=== PATIENT | male | born 1975 | race Caucasian/White ===

== ENCOUNTER 2024-07-18 13:02 | Inpatient (IN) | payer BC ==
[~2024-07-18] VITALS: Ht 177.8 cm; Wt 174.7 kg
[2024-07-18 13:27] LABS: BASOPHILS # (AUTO) 0.2 X10'3 (0-0.2); BASOPHILS % (AUTO) 0.8 % (0-1); EOSINOPHILS # (AUTO) 0.1 X10'3 (0-0.9); EOSINOPHILS % (AUTO) 0.4 % (0-6); HEMATOCRIT 39.2 % (42.0-52.0); HEMOGLOBIN 12.6 g/dl (14.0-17.9); LYMPHOCYTES # (AUTO) 3.9 X10'3 (1.1-4.8); LYMPHOCYTES % (AUTO) 17.5 % (21-51); MEAN CORPUSCULAR HEMOGLOBIN 25.6 PG (27.0-31.0); MEAN CORPUSCULAR HGB CONC 32.1 g/dL (33.0-36.5); MEAN CORPUSCULAR VOLUME 79.7 FL (78-98); MEAN PLATELET VOLUME 9.9 FL (7.4-10.4); MONOCYTES # (AUTO) 1.6 X10'3 (0-0.9); MONOCYTES % (AUTO) 7.1 % (2-12); NEUTROPHILS # (AUTO) 16.3 X10'3 (1.8-7.7); NEUTROPHILS % (AUTO) 74.2 % (42-75); PLATELET COUNT 323 X10'3 (140-440); RED BLOOD COUNT 4.91 X10'6 (4.70-6.10); RED CELL DISTRIBUTION WIDTH 14.7 % (11.5-14.5)
[2024-07-18] MEDS: adenosine 3mg/ml 2ml vial IV ONE ×3 (13:27→14:04)
[2024-07-18] MEDS: diltiazem 5mg/ml 5ml inj. IV ONE ×2 (13:27→13:58)
[2024-07-18 13:47] LABS: ANION GAP 12 (8-16); BLOOD UREA NITROGEN 55 MG/DL (7-18); BUN/CREATININE RATIO 19.8 (10.0-20.0); CHLORIDE 94 MMOL/L (99-107); CREATININE 2.78 MG/DL (0.60-1.10); GLUCOSE 238 MG/DL (70-104); SODIUM 133 MMOL/L (135-145); TOTAL CARBON DIOXIDE 26.8 MMOL/L (24-32)
[2024-07-18 13:48] LABS: ALANINE AMINOTRANSFERASE 41 U/L (12-78); ALBUMIN 3.2 G/DL (3.4-5.0); ALBUMIN/GLOBULIN RATIO 0.8 (1.1-1.5); ALKALINE PHOSPHATASE 110 IU/L (46-116); ASPARTATE AMINO TRANSFERASE 39 U/L (10-37); BILIRUBIN,TOTAL 0.8 MG/DL (0.1-1.0); CALCIUM 8.4 MG/DL (8.5-10.1); eCRCL 33 ML/MIN; eGFR 24 ML/MIN
[2024-07-18 13:54] LABS: PRO BRAIN NATRIURETIC PEPTIDE 3250 PG/ML (0-125)
[2024-07-18 14:01] LABS: D-DIMER 1.46 MG/L FEU (0-0.50)
[2024-07-18 14:15] LABS: THYROID STIMULATING HORMONE 2.45 ulU/ml (0.34-4.50)
[2024-07-18 14:24] LABS: POTASSIUM 3.1 MMOL/L (3.5-5.1)
[2024-07-18] MEDS ORDERED: iohexol 350MG/ML 100ml bottle IV ONE (14:24)
[2024-07-18] MEDS: diltiazem-NS 100mg/100ml 100 ML IV SCH ×2 (14:34→18:11)
[2024-07-18] MEDS: bumetanide 0.25mg/ml 4ml vial IV STA (14:34)
[2024-07-18] MEDS: amiodarone 150mg/dext, iso-os 100 ML IV ONE ×3 (14:45→18:27)
[2024-07-18] MEDS: amiodarone/D5 360MG/200ML BAG 200 ML IV SCH (15:02)
[2024-07-18] MEDS ORDERED: magnesium sulf-water 4G/100mL 100 ML IV PRN (16:20)
[2024-07-18] MEDS ORDERED: ondansetron/PF 4mg/2ml inj IV PRN ×2 (16:20→18:05)
[2024-07-18] MEDS: metoprolol tartrate 1mg/ml inj IV ONE ×4 (16:20→18:26)
[2024-07-18] MEDS ORDERED: magnesium hydroxide 30ml (MOM) UD suspension PO PRN (16:20)
[2024-07-18] MEDS ORDERED: potassium Cl 40MEQ/1/2NS 520ml 520 ML IV PRN (16:20)
[2024-07-18] MEDS ORDERED: magnesium Cl slow-release 64mg tablet PO PRN (16:20)
[2024-07-18] MEDS ORDERED: acetaminophen 325mg tablet PO PRN ×3 (16:20→18:05)
[2024-07-18] MEDS ORDERED: mag hydrox/Alum hydrox/simeth 30ml oral suspension PO PRN (16:20)
[2024-07-18] MEDS: digoxin 250mcg/ml 2ml ampule IV ONE (16:50)
[2024-07-18] MEDS ORDERED: amiodarone 150mg/dext, iso-os 100 ML IV ONE (18:00)
[2024-07-18] MEDS ORDERED: morphine 2 MG/ML inj. syringe IV PRN (18:05)
[2024-07-18] MEDS ORDERED: morphine 4 MG/ML inj SYRINge IV PRN (18:05)
[2024-07-18] MEDS ORDERED: amiodarone 50MG/ML inj IV ONE (18:15)
[2024-07-18] MEDS ORDERED: METO-384 (18:25)
[2024-07-18] MEDS ORDERED: LOSA100T58 PO (18:25)
[2024-07-18] MEDS ORDERED: GLIP10TA21 PO (18:25)
[2024-07-18] MEDS ORDERED: ALOG25TA2 PO (18:25)
[2024-07-18] MEDS ORDERED: METF-900 PO (18:25)
[2024-07-18] MEDS ORDERED: HYDR25TA4 (18:25)
[2024-07-18] MEDS ORDERED: SEMA0.253 SQ (18:25)
[2024-07-18] MEDS: normal saline 1000ml 1,000 ML IV ONE (18:25)
[2024-07-18] MEDS ORDERED: FLAS1KIT3 (18:25)
[2024-07-18] MEDS ORDERED: BUME2TAB7 PO (18:25)
[2024-07-18 18:50] LABS: HEMOGLOBIN A1C > 12.0 % (4.5-6.2)
[2024-07-18 19:00] VITALS: BP 110/56; PULSE 126; RESP 29; O2SAT 94
[2024-07-18] MEDS ORDERED: glucagon, human recombinant 1mg kit SUBCUT PRN (19:10)
[2024-07-18] MEDS ORDERED: DEXTROSE 15 GM of carb/4 tabs (each vial/BOTTLE has 4 tablets) PO PRN ×2 (19:10)
[2024-07-18] MEDS ORDERED: dextrose 50%-water 50ml dispensing syringe IV PRN ×2 (19:10)
[2024-07-18 19:48] LABS: % IRON SATURATION 8 % (11-46); IRON 22 UG/DL (53-167); TOTAL IRON BINDING CAPACITY 283 UG/DL (259-388)
[2024-07-18 20:00] VITALS: BP 117/63; PULSE 125; RESP 18; RESP 27; O2SAT 93; O2SAT 95
[2024-07-18] MEDS: docusate sod 100mg capsule PO SCH (20:00)
[2024-07-18 20:16] LABS: FREE T4 (FREE THYROXINE) 1.38 NG/DL (0.73-1.40); THYROID STIMULATING HORMONE 2.27 ulU/ml (0.34-4.50)
[2024-07-18] MEDS: CefTRIAXone/D5W-Rocephin 1gm 50 ML IV ONE (20:40)
[2024-07-18] MEDS: apixaban 5mg tablet PO SCH (20:41)
[2024-07-18] MEDS: metoprolol tartrate 50mg tablet PO SCH (20:41)
[2024-07-18 21:00] VITALS: BP 121/70; PULSE 141; RESP 39; O2SAT 94
[2024-07-18] MEDS: INSULIN LISPRO 100 UNIT/ML INSULN.PEN MULTI-DOSE SQ SCH (21:34)
[2024-07-18] MEDS: insulin glargine (Lantus) pen - multi-dose SQ SCH (21:35)
[2024-07-18 22:00] VITALS: BP 126/66; PULSE 126; RESP 26; O2SAT 94
[2024-07-18 23:00] VITALS: BP 121/52; PULSE 93; RESP 25; O2SAT 93
[2024-07-19] VITALS (24 sets, daily range): BP systolic 87–154; BP diastolic 50–85; PULSE 75–121; RESP 10–30; TEMP 97–98.1; O2SAT 91–97
[2024-07-19] MEDS ORDERED: heparin, porcine 5000 units/ml vial SQ SCH
[2024-07-19 03:10] LABS: BASOPHILS # (AUTO) 0.2 X10'3 (0-0.2); EOSINOPHILS # (AUTO) 0.1 X10'3 (0-0.9); EOSINOPHILS % (AUTO) 0.7 % (0-6); HEMATOCRIT 37.7 % (42.0-52.0); HEMOGLOBIN 12.1 g/dl (14.0-17.9); LYMPHOCYTES # (AUTO) 3.8 X10'3 (1.1-4.8); LYMPHOCYTES % (AUTO) 21.9 % (21-51); MEAN CORPUSCULAR HEMOGLOBIN 25.8 PG (27.0-31.0); MEAN CORPUSCULAR HGB CONC 32.2 g/dL (33.0-36.5); MEAN CORPUSCULAR VOLUME 80.1 FL (78-98); MEAN PLATELET VOLUME 9.6 FL (7.4-10.4); MONOCYTES # (AUTO) 1.3 X10'3 (0-0.9); MONOCYTES % (AUTO) 7.4 % (2-12); PLATELET COUNT 241 X10'3 (140-440); RED BLOOD COUNT 4.71 X10'6 (4.70-6.10); RED CELL DISTRIBUTION WIDTH 14.9 % (11.5-14.5); WHITE BLOOD COUNT 17.4 X10'3 (4.5-11.0)
[2024-07-19 03:30] LABS: ALANINE AMINOTRANSFERASE 41 U/L (12-78); ALBUMIN 3.1 G/DL (3.4-5.0); ALKALINE PHOSPHATASE 102 IU/L (46-116); ANION GAP 9 (8-16); ASPARTATE AMINO TRANSFERASE 23 U/L (10-37); BILIRUBIN,TOTAL 0.7 MG/DL (0.1-1.0); BLOOD UREA NITROGEN 51 MG/DL (7-18); BUN/CREATININE RATIO 22.9 (10.0-20.0); CALCIUM 8.2 MG/DL (8.5-10.1); CHLORIDE 98 MMOL/L (99-107); CREATININE 2.23 MG/DL (0.60-1.10); GLUCOSE 184 MG/DL (70-104); POTASSIUM 3.3 MMOL/L (3.5-5.1); SODIUM 139 MMOL/L (135-145); TOTAL CARBON DIOXIDE 32.2 MMOL/L (24-32); TOTAL PROTEIN 6.3 G/DL (6.4-8.2); eCRCL 41 ML/MIN; eGFR 31 ML/MIN
[2024-07-19] MEDS: potassium Cl 20 mEq SR tablet PO PRN ×2 (04:55→08:48)
[2024-07-19] MEDS: amiodarone 200mg tablet PO SCH ×2 (07:40→15:57)
[2024-07-19] MEDS ORDERED: amiodarone 200mg tablet PO SCH ×3 (08:00→20:00)
[2024-07-19] MEDS: metoprolol tartrate 50mg tablet PO ONE (08:34)
[2024-07-19] MEDS: amiodarone 200mg tablet PO ONE (08:48)
[2024-07-19] MEDS: magnesium sulf-water 2g/50mL 50 ML IV ONE (08:51)
[2024-07-19] MEDS: normal saline 1000ml 1,000 ML IV SCH (11:26)
[2024-07-19 12:02] LABS: BILIRUBIN,URINE NEGATIVE (Neg); CLARITY,URINE CLEAR (Clear); COLOR,URINE YELLOW (Yellow); GLUCOSE, URINE NEGATIVE (Neg); KETONES,URINE NEGATIVE (Neg); LEUKOCYTE ESTERASE ,URINE NEGATIVE (Neg); NITRITES, URINE NEGATIVE (Neg); OCCULT BLOOD,URINE NEGATIVE (Neg); PROTEIN,URINE NEGATIVE (Neg); UROBILINOGEN,URINE 0.2 E.U/dL (0.2-1.0)
[2024-07-19 12:08] LABS: UA COLLECTION TYPE NON-SPECIFIED
[2024-07-19 12:28] LABS: URINE AMPHETAMINE SCREEN NEGATIVE (Neg); URINE BARBITUATE SCREEN NEGATIVE (Neg); URINE BENZODIAZEPINES SCREEN NEGATIVE (Neg); URINE CANNABINOID SCREEN NEGATIVE (Neg); URINE COCAINE SCREEN NEGATIVE (Neg); URINE METHADONE SCREEN NEGATIVE (Neg); URINE OPIATE SCREEN NEGATIVE (Neg); URINE PHENCYCLIDINE SCREEN NEGATIVE (Neg)
[2024-07-19 12:39] LABS: UA EOSINOPHILS NO EOS /HPF
[2024-07-19] MEDS ORDERED: metoprolol tartrate 50mg tablet PO SCH ×2 (15:00→20:00)
[2024-07-19] MEDS ORDERED: DEXTROSE 15 GM of carb/4 tabs (each vial/BOTTLE has 4 tablets) PO PRN ×2 (15:25)
[2024-07-19] MEDS ORDERED: dextrose 50%-water 50ml dispensing syringe IV PRN ×2 (15:25)
[2024-07-19] MEDS ORDERED: glucagon, human recombinant 1mg kit SUBCUT PRN (15:25)
[2024-07-19] MEDS ORDERED: metoprolol tartrate 25mg tablet PO SCH ×3 (15:40→20:00)
[2024-07-19] MEDS: digoxin 250mcg/ml 2ml ampule IV ONE ×2 (15:57→21:39)
[2024-07-19] MEDS: metoprolol tartrate 25mg tablet PO SCH (16:00)
[2024-07-19] MEDS ORDERED: INSULIN LISPRO 100 UNIT/ML INSULN.PEN MULTI-DOSE SQ SCH (17:00)
[2024-07-19] MEDS: DOBUTamine-DoBUTrex 500mg/D5W 250 ML IV SCH (17:13)
[2024-07-19] MEDS: metoprolol tartrate 25mg tablet PO STA (18:03)
[2024-07-19] MEDS: INSULIN LISPRO 100 UNIT/ML INSULN.PEN MULTI-DOSE SQ SCH (19:29)
[2024-07-20] VITALS (13 sets, daily range): BP systolic 97–130; BP diastolic 48–69; PULSE 56–141; RESP 16–30; TEMP 97–99.5; O2SAT 92–97
[2024-07-20 07:22] LABS: BASOPHILS # (AUTO) 0.1 X10'3 (0-0.2); BASOPHILS % (AUTO) 0.6 % (0-1); EOSINOPHILS # (AUTO) 0.2 X10'3 (0-0.9); EOSINOPHILS % (AUTO) 1.5 % (0-6); HEMOGLOBIN 11.6 g/dl (14.0-17.9); LYMPHOCYTES # (AUTO) 2.5 X10'3 (1.1-4.8); LYMPHOCYTES % (AUTO) 19.5 % (21-51); MEAN CORPUSCULAR HEMOGLOBIN 26.2 PG (27.0-31.0); MEAN CORPUSCULAR HGB CONC 32.4 g/dL (33.0-36.5); MEAN PLATELET VOLUME 9.6 FL (7.4-10.4); MONOCYTES % (AUTO) 7.8 % (2-12); NEUTROPHILS % (AUTO) 70.6 % (42-75); PLATELET COUNT 235 X10'3 (140-440); RED BLOOD COUNT 4.44 X10'6 (4.70-6.10); RED CELL DISTRIBUTION WIDTH 14.7 % (11.5-14.5); WHITE BLOOD COUNT 12.8 X10'3 (4.5-11.0)
[2024-07-20] MEDS ORDERED: INSULIN LISPRO 100 UNIT/ML INSULN.PEN MULTI-DOSE SQ SCH ×2 (07:30→12:30)
[2024-07-20] MEDS: metoprolol tartrate 25mg tablet PO SCH (07:38)
[2024-07-20] MEDS: insulin glargine (Lantus) pen - multi-dose SQ SCH (07:46)
[2024-07-20] MEDS ORDERED: EMPAGLIFLOZIN 10 MG TABLET PO SCH (08:00)
[2024-07-20 08:19] LABS: ANION GAP 6 (8-16); BLOOD UREA NITROGEN 38 MG/DL (7-18); BUN/CREATININE RATIO 27.5 (10.0-20.0); CHLORIDE 101 MMOL/L (99-107); CREATININE 1.38 MG/DL (0.60-1.10); GLUCOSE 155 MG/DL (70-104); POTASSIUM 3.2 MMOL/L (3.5-5.1); SODIUM 140 MMOL/L (135-145)
[2024-07-20 08:20] LABS: ALANINE AMINOTRANSFERASE 30 U/L (12-78); ALBUMIN 2.7 G/DL (3.4-5.0); ALBUMIN/GLOBULIN RATIO 0.8 (1.1-1.5); ALKALINE PHOSPHATASE 93 IU/L (46-116); ASPARTATE AMINO TRANSFERASE 31 U/L (10-37); BILIRUBIN,TOTAL 0.9 MG/DL (0.1-1.0); CALCIUM 8.2 MG/DL (8.5-10.1); MAGNESIUM 2.3 MG/DL (1.5-2.4); TOTAL PROTEIN 6.3 G/DL (6.4-8.2); eCRCL 66 ML/MIN; eGFR 55 ML/MIN
[2024-07-20] MEDS: EMPAGLIFLOZIN 10 MG TABLET PO SCH (11:35)
[2024-07-20] MEDS: spironolactone 25 MG tablet PO SCH (11:36)
[2024-07-20] MEDS: INSULIN LISPRO 100 UNIT/ML INSULN.PEN MULTI-DOSE SQ SCH ×2 (12:30→17:30)
[2024-07-20] MEDS: amiodarone 150mg/dext, iso-os 100 ML IV ONE ×2 (15:04→15:08)
[2024-07-20] MEDS: metoprolol tartrate 1mg/ml inj IV PRN (15:53)
[2024-07-21] VITALS (14 sets, daily range): BP systolic 100–141; BP diastolic 47–84; PULSE 50–84; RESP 12–25; TEMP 97.2–97.7; O2SAT 94–97
[2024-07-21] MEDS: nitroGLYCERIN 1gm ointment UD TP ONE (02:07)
[2024-07-21 06:57] LABS: BASOPHILS # (AUTO) 0.1 X10'3 (0-0.2); BASOPHILS % (AUTO) 0.9 % (0-1); EOSINOPHILS # (AUTO) 0.1 X10'3 (0-0.9); EOSINOPHILS % (AUTO) 0.5 % (0-6); HEMATOCRIT 36.9 % (42.0-52.0); HEMOGLOBIN 11.7 g/dl (14.0-17.9); LYMPHOCYTES # (AUTO) 2.6 X10'3 (1.1-4.8); MEAN CORPUSCULAR HEMOGLOBIN 25.7 PG (27.0-31.0); MEAN CORPUSCULAR HGB CONC 31.7 g/dL (33.0-36.5); MEAN PLATELET VOLUME 10.1 FL (7.4-10.4); MONOCYTES # (AUTO) 1.1 X10'3 (0-0.9); MONOCYTES % (AUTO) 7.5 % (2-12); NEUTROPHILS # (AUTO) 10.4 X10'3 (1.8-7.7); NEUTROPHILS % (AUTO) 73.1 % (42-75); PLATELET COUNT 257 X10'3 (140-440); RED BLOOD COUNT 4.55 X10'6 (4.70-6.10); RED CELL DISTRIBUTION WIDTH 14.6 % (11.5-14.5); WHITE BLOOD COUNT 14.3 X10'3 (4.5-11.0)
[2024-07-21 07:52] LABS: ALANINE AMINOTRANSFERASE 34 U/L (12-78); ALBUMIN 2.9 G/DL (3.4-5.0); ALBUMIN/GLOBULIN RATIO 0.7 (1.1-1.5); ALKALINE PHOSPHATASE 98 IU/L (46-116); ANION GAP 8 (8-16); ASPARTATE AMINO TRANSFERASE 25 U/L (10-37); BILIRUBIN,TOTAL 1.1 MG/DL (0.1-1.0); BLOOD UREA NITROGEN 39 MG/DL (7-18); BUN/CREATININE RATIO 25.8 (10.0-20.0); CALCIUM 8.3 MG/DL (8.5-10.1); CHLORIDE 100 MMOL/L (99-107); CREATININE 1.51 MG/DL (0.60-1.10); GLUCOSE 165 MG/DL (70-104); MAGNESIUM 2.3 MG/DL (1.5-2.4); POTASSIUM 3.7 MMOL/L (3.5-5.1); SODIUM 139 MMOL/L (135-145); TOTAL CARBON DIOXIDE 30.6 MMOL/L (24-32); TOTAL PROTEIN 6.8 G/DL (6.4-8.2); eCRCL 60 ML/MIN; eGFR 49 ML/MIN
[2024-07-21] MEDS: losartan 25mg tablet PO SCH (09:59)
[2024-07-21] MEDS: INSULIN LISPRO 100 UNIT/ML INSULN.PEN MULTI-DOSE SQ SCH (10:00)
[2024-07-21] MEDS ORDERED: potassium CL 10mEq/100ml bag 100 ML IV PRN (15:15)
[2024-07-21] MEDS ORDERED: magnesium sulf-water 4G/100mL 100 ML IV PRN (15:15)
[2024-07-21] MEDS ORDERED: potassium Cl 40MEQ/270ML bag 250 ML IV PRN (15:15)
[2024-07-21] MEDS ORDERED: potassium Cl 40MEQ/1/2NS 520ml 520 ML IV PRN (15:15)
[2024-07-21] MEDS ORDERED: magnesium sulf-water 2g/50mL 50 ML IV PRN (15:15)
[2024-07-21] MEDS ORDERED: potassium Cl 20mEq/100mL bag 100 ML IV PRN (15:15)
[2024-07-21] MEDS: potassium Cl 20 mEq SR tablet PO PRN (15:39)
[2024-07-21] MEDS: furosemide 20 MG/2 ML vial IV SCH (15:44)
[2024-07-21] MEDS: amiodarone 200mg tablet PO SCH (21:11)
[2024-07-22] VITALS (8 sets, daily range): BP systolic 119–144; BP diastolic 54–81; PULSE 51–72; RESP 14–27; TEMP 96.6–98; O2SAT 93–97
[2024-07-22 06:21] LABS: BASOPHILS # (AUTO) 0.1 X10'3 (0-0.2); BASOPHILS % (AUTO) 0.8 % (0-1); EOSINOPHILS # (AUTO) 0.1 X10'3 (0-0.9); EOSINOPHILS % (AUTO) 0.9 % (0-6); HEMATOCRIT 36.2 % (42.0-52.0); HEMOGLOBIN 11.3 g/dl (14.0-17.9); LYMPHOCYTES # (AUTO) 2.6 X10'3 (1.1-4.8); LYMPHOCYTES % (AUTO) 18.7 % (21-51); MEAN CORPUSCULAR HEMOGLOBIN 25.4 PG (27.0-31.0); MEAN CORPUSCULAR HGB CONC 31.4 g/dL (33.0-36.5); MEAN PLATELET VOLUME 9.9 FL (7.4-10.4); NEUTROPHILS # (AUTO) 9.9 X10'3 (1.8-7.7); NEUTROPHILS % (AUTO) 72.6 % (42-75); PLATELET COUNT 234 X10'3 (140-440); RED BLOOD COUNT 4.47 X10'6 (4.70-6.10); RED CELL DISTRIBUTION WIDTH 14.6 % (11.5-14.5); WHITE BLOOD COUNT 13.7 X10'3 (4.5-11.0)
[2024-07-22 06:37] LABS: ALANINE AMINOTRANSFERASE 30 U/L (12-78); ALBUMIN 2.9 G/DL (3.4-5.0); ALBUMIN/GLOBULIN RATIO 0.7 (1.1-1.5); ALKALINE PHOSPHATASE 97 IU/L (46-116); ANION GAP 8 (8-16); ASPARTATE AMINO TRANSFERASE 24 U/L (10-37); BLOOD UREA NITROGEN 43 MG/DL (7-18); BUN/CREATININE RATIO 28.5 (10.0-20.0); CALCIUM 8.4 MG/DL (8.5-10.1); CHLORIDE 103 MMOL/L (99-107); CREATININE 1.51 MG/DL (0.60-1.10); GLUCOSE 170 MG/DL (70-104); MAGNESIUM 2.4 MG/DL (1.5-2.4); POTASSIUM 3.9 MMOL/L (3.5-5.1); SODIUM 140 MMOL/L (135-145); TOTAL CARBON DIOXIDE 29.1 MMOL/L (24-32); TOTAL PROTEIN 6.9 G/DL (6.4-8.2); eCRCL 60 ML/MIN; eGFR 49 ML/MIN
[2024-07-22] MEDS ORDERED: APIX5TAB3 PO ×2 (08:30→12:44)
[2024-07-22] MEDS ORDERED: SPIR25TA PO (10:01)
[2024-07-22] MEDS ORDERED: EMPA10TA PO (10:01)
[2024-07-22] MEDS ORDERED: FURO-150 PO (10:01)
[2024-07-22] MEDS ORDERED: LOSA25TA41 PO (10:01)
[2024-07-22] MEDS ORDERED: AMI200T PO (10:01)
[2024-07-22] MEDS ORDERED: LANTUS SQ (10:01)
[2024-07-22] MEDS ORDERED: LOP25T PO (10:01)
[2024-07-22] MEDS ORDERED: LOP12.5T PO (12:44)
[2024-07-22] MEDS ORDERED: LOSA50TA64 PO (12:44)
[2024-07-22] MEDS ORDERED: AMIO200T67 PO (12:44)
[2024-07-22] MEDS ORDERED: SPIR25TA5 PO (12:44)
== END 2024-07-22 13:40 | disposition home or self-care (01) | DRG 291 ==
LOC: ER 13:03 → ED HOLD 16:25 → UNDOADMIN 16:25 → EDBEDREQ 16:41 → ED HOLD 18:10 → EDBEDREQSVC 18:41 → EDBEDREQTM 18:41 → EDBEDREQ 18:41 → ED HOLD 18:51 → CICU 2S 18:51 → PCU 3S 07-19 13:00
PROVIDERS: ADMIT Internal Medicine; ATTEND Internal Medicine
PROC: B32T1ZZ Computerized Tomography (CT Scan) of Left Pulmonary Artery using Low Osmolar Contrast (ICD-10-PCS; principal; 2024-07-18)
PROC: B3201ZZ Computerized Tomography (CT Scan) of Thoracic Aorta using Low Osmolar Contrast (ICD-10-PCS; 2024-07-18)
PROC: B32S1ZZ Computerized Tomography (CT Scan) of Right Pulmonary Artery using Low Osmolar Contrast (ICD-10-PCS; 2024-07-18)
PROC: 05HB33Z Insertion of Infusion Device into Right Basilic Vein, Percutaneous Approach (ICD-10-PCS; 2024-07-21)
DX: I13.0 Hypertensive heart and chronic kidney disease with heart failure and stage 1 through stage 4 chronic kidney disease, or unspecified chronic kidney disease (principal); I50.23 Acute on chronic systolic (congestive) heart failure; Z68.43 Body mass index [BMI] 50.0-59.9, adult; N17.9 Acute kidney failure, unspecified; E66.01 Morbid (severe) obesity due to excess calories; E11.22 Type 2 diabetes mellitus with diabetic chronic kidney disease; N18.9 Chronic kidney disease, unspecified; E11.65 Type 2 diabetes mellitus with hyperglycemia; I42.8 Other cardiomyopathies; E87.6 Hypokalemia; I48.91 Unspecified atrial fibrillation; Z88.0 Allergy status to penicillin; Z88.1 Allergy status to other antibiotic agents
CPT/HCPCS: 36410; 36415; 71045; 71275; 76937; 80053; 80305; 81003; 82570; 82728; 82948; 83036; 83540; 83550; 83605; 83735; 83880; 83930; 83935; 84145; 84300; 84439; 84443; 84466; 84484; 85025; 85379; 87040; 87081; 87207; 93005; 93306; 93308; 96365; 96375; 97116; 97161; 97530; 99291; A6258; A6449; A6590; C1751; G0378; J0153; J0282; J0696; J1160; J1250; J1815; J1940; J3490; J7030; Q9967